=== PATIENT | male | born 1975 | race African-American/Black ===

== ENCOUNTER 2016-10-21 10:15 | Emergency (ER) | payer OTHER ==
[~2016-10-21] VITALS: Ht 167.6 cm; Wt 81.5 kg
[~2016-10-21 10:15] MED LIST: DEPA500T3 PO; IBUP800T23 PO; REME30TA PO
[2016-10-21 10:16] VITALS: BP 110/75; PULSE 70; RESP 20; TEMP 98; O2SAT 98
--- NOTE | 2016-10-21 10:37 | PD ---
HPI Chief Complaint: Injury Time Seen by Provider: 10:36 Travel History International Travel<30 days: No Contact w/Intl Traveler<30days: No Traveled to known affect area: No History of Present Illness HPI 40-year-old male presents emergency Department with complaint of left shoulder pain since Tuesday after hearing a "pop" while working out lifting weights. Denies paresthesias, loss of sensation to the affected extremity. Reports decreased range of motion at the left shoulder secondary to pain. Denies fever , chills, nausea, vomiting. Has taken [id number] medications with some relief of symptoms. Pain is worse with movement and palpation. No known allergies. Has no other medical complaints. No other modifying factors or associated signs and symptoms. PFSH Past Medical History Anxiety: Yes Depression: Yes Cardiovascular Problems: Yes (HEART MURMUR) Diminished Hearing: No Headaches: Yes Musculoskeletal: Yes (FX RIGHT ANKLE 03/03) Immunizations Current: Yes Past Surgical History Other Surgery: Yes (NASAL PASSAGE SURGERY 2012) Social History Alcohol Use: Yes (SOCIALLY) Tobacco Use: No Substance Use: Yes (MARIJUANA) Allergies-Medications (Allergen,Severity, Reaction): Coded Allergies: No Known Allergies (Verified , 10/21/16) Reported Meds & Prescriptions Reported Meds & Active Scripts Active Robaxin (Methocarbamol) 500 Mg Tab 500 Mg PO QID PRN Ibuprofen 800 Mg Tab 800 Mg PO Q6HR PRN Ibuprofen 800 Mg Tab 800 Mg PO Q8HR 10 Days Reported Remeron 30 mg (Mirtazapine) 30 Mg Tab 1 Tab PO HS Depakote ER 500 mg (Divalproex Sodium) 500 Mg Tab 2 Tab PO HS Review of Systems Except as stated in HPI: all other systems reviewed are Neg Physical Exam Narrative GENERAL: Well-nourished, well-developed male patient, in no acute distress SKIN: Warm and dry. HEAD: Atraumatic. Normocephalic. EYES: Pupils equal and round. No scleral icterus. No injection or drainage. ENT: Mucosa pink and moist. Airway patent. NECK: Supple. Trachea midline. CARDIOVASCULAR: Regular rate and rhythm. RESPIRATORY: No accessory muscle use. GASTROINTESTINAL: Flat. MUSCULOSKELETAL: Left shoulder with full range of motion and greater than 45 abduction; no obvious deformity; shoulder without erythema, edema, ecchymosis; with tenderness of the patient to the anterior aspect; joint stable. Shoulders equal. Left upper extremity supple and nontender to 2+ radial pulse and sensory intact without erythema or edema. No obvious deformities. No clubbing. No cyanosis. No edema. NEUROLOGICAL: Awake and alert. Oriented 3. No obvious cranial nerve deficits. Motor grossly within normal limits. Normal speech. PSYCHIATRIC: Appropriate mood and affect; insight and judgment normal. Data Data Last Documented VS Vital Signs Date Time Temp Pulse Resp B/P Pulse Ox O2 Delivery O2 Flow Rate FiO2 10/21/16 10:16 98.0 70 20 110/75 98 Room Air Orders Ibuprofen (Motrin) (10/21/16 10:45) Methocarbamol (Robaxin) (10/21/16 10:45) Sling Cradle Arm (10/21/16 ) MDM Medical Decision Making Medical Screen Exam Complete: Yes Emergency Medical Condition: Yes Medical Record Reviewed: Yes Differential Diagnosis Shoulder strain, rotator cuff tear, less likely fracture dislocation Narrative Course 40-year-old male with left shoulder injury consistent with a shoulder strain. No traumatic injury. Joint is stable and I do not suspect fracture, dislocation , joint separation and feel that imaging is not necessary at this time. Patient was provided with an arm sling for support and discussed limited use of arm sling. Ibuprofen and Robaxin ordered and administered in the ER. Ibuprofen Robaxin prescribed for home. Instructed patient to follow-up with primary care provider if symptoms persist greater than 10-14 days. Patient verbalizes understanding and agreement with treatment plan. Patient is medically cleared and stable for discharge. Discussed reasons to return to the emergency department. Instructed patient to follow up with primary care provider. Patient agrees with treatment plan. The patients vital signs are stable and the patient is stable for outpatient follow-up and treatment. Patient discharged home, stable and in no acute distress. Diagnosis Primary Impression: Left shoulder strain Qualified Code: S46.912A - Left shoulder strain, initial encounter Referrals: Orthopedist Primary Care Physician Patient Instructions: General Instructions, Shoulder Sprain (ED) Departure Forms: Tests/Procedures, Work Release Enter return to work date: October 25, 2016 Additional Instructions: Tylenol or ibuprofen as needed and as directed to reduce pain and inflammation Rest, ice, and compress extremity to decrease pain and inflammation Arm sling for support; limit use of arm sling to avoid frozen shoulder Avoid aggravating activity; increase activity as tolerated Follow-up with primary care provider Follow-up with orthopedics as needed Return to the emergency department immediately with worsening symptoms Med/Other Pt SpecificInfo: Prescription(s) given Scripts Methocarbamol (Robaxin)500 Mg [id number] Mg PO QID PRN (MUSCLE SPASM) #30 TAB Ref 0 Prov:Viky Ng 10/21/16 Ibuprofen 800 Mg [id number] Mg PO Q6HR PRN (PAIN) #30 TAB Ref 0 Prov:Viky Ng 10/21/16 Disposition: 01 DISCHARGE HOME Condition: Stable Viky Ng Oct 21, 2016 10:37
[2016-10-21] MEDS ORDERED: IBUP800T23 PO (10:39)
[2016-10-21] MEDS ORDERED: ROBA500T PO (10:39)
[2016-10-21] MEDS ORDERED: IBUPROFEN 800 MG TAB PO ONE (10:45)
[2016-10-21] MEDS ORDERED: METHOCARBAMOL 500 MG TAB PO ONE (10:45)
== END 2016-10-21 11:05 | disposition home or self-care (01) ==
LOC: NEPK 10:15
DX: S46.912A Strain of unspecified muscle, fascia and tendon at shoulder and upper arm level, left arm, initial encounter (principal); X50.9XXA Other and unspecified overexertion or strenuous movements or postures, initial encounter; Y93.B9 Activity, other involving muscle strengthening exercises
CPT/HCPCS: 99283

== ENCOUNTER 2017-08-17 11:38 | Emergency (ER) | payer SELFPAY ==
[~2017-08-17] VITALS: Ht 167.6 cm; Wt 72.7 kg
[~2017-08-17 11:38] MED LIST changes: +IBUP1TAB7 PO; +ROBA500T PO
[2017-08-17 11:39] VITALS: BP 134/69; PULSE 86; RESP 16; TEMP 98.6; O2SAT 99
--- NOTE | 2017-08-17 12:34 | RADRPT ---
EXAM DATE/TIME: 08/17/2017 12:26 [facility] COMPARISON: No previous studies available for comparison. INDICATIONS : Right frontal haedache right blurred vision. RADIATION DOSE: 38.21 CTDIvol (mGy) MEDICAL HISTORY : Cardiovascular disease. SURGICAL HISTORY : None. ENCOUNTER: Initial ACUITY: 2 days PAIN SCALE: 6/10 LOCATION: Right cranial TECHNIQUE: Multiple contiguous axial images were obtained of the head. Using automated exposure control and adj ustment of the mA and/or kV according to patient size, radiation dose was kept as low as reasonably a chievable to obtain optimal diagnostic quality images. DICOM format image data is available electro nically for review and comparison. FINDINGS: CEREBRUM: The ventricles are normal for age. No evidence of midline shift, mass lesion, hemorrhage or acute in farction. No extra-axial fluid collections are seen. POSTERIOR FOSSA: The cerebellum and brainstem are intact. The 4th ventricle is midline. The cerebellopontine angle i s unremarkable. EXTRACRANIAL: The visualized portion of the orbits is intact. There is opacification of the frontal sinuses, anteri or ethmoid air cells and both maxillary sinuses. There size wall thickening and calcifications within the opacified sinuses. SKULL: The calvaria is intact. No evidence of skull fracture. CONCLUSION: 1. No acute intracranial abnormalities. Chronic pansinusitis with mural thickening and calcifications within the opacified sinuses. Lenny Franks MD on August 17, 2017 at 12:29 Board Certified Radiologist. This report was verified electronically.
[2017-08-17] MEDS ORDERED: DEPA500T3 PO (12:41)
[2017-08-17] MEDS ORDERED: REME30TA PO (12:41)
[2017-08-17 12:48] LABS: AUTOMATED NEUTROPHIL # 2.3 TH/MM3 (1.8-7.7); BASOPHIL # 0.1 TH/MM3 (0-0.2); EOSINOPHIL # 0.6 TH/MM3 (0-0.4); EOSINOPHIL % 10.7 % (0.0-4.0); HEMOGLOBIN 14.5 GM/DL (13.0-17.0); LYMPH % 40.5 % (9.0-44.0); LYMPHOCYTE # 2.2 TH/MM3 (1.0-4.8); MEAN CELL VOLUME 90.2 FL (80.0-100.0); MEAN CORPUSCULAR HEMOGLOBIN 31.8 PG (27.0-34.0); MEAN CORPUSCULAR HGB CONC 35.3 % (32.0-36.0); MEAN PLATELET VOLUME 8.8 FL (7.0-11.0); MONO % 4.9 % (0.0-8.0); MONOCYTE # 0.3 TH/MM3 (0-0.9); NEUT % 42.9 % (16.0-70.0); PLATELET COUNT 194 TH/MM3 (150-450); RED BLOOD COUNT 4.55 MIL/MM3 (4.50-5.90); WHITE BLOOD COUNT 5.4 TH/MM3 (4.0-11.0)
[2017-08-17 13:02] LABS: ALBUMIN 3.6 GM/DL (3.4-5.0); ALT (GPT) 16 U/L (12-78); AST (GOT) 14 U/L (15-37); BICARBONATE 29.1 MEQ/L (21.0-32.0); BLOOD UREA NITROGEN 10 MG/DL (7-18); CALCIUM 8.9 MG/DL (8.5-10.1); CHLORIDE 106 MEQ/L (98-107); CREATININE 0.98 MG/DL (0.60-1.30); GLOMERULAR FILTRATION RATE 102 ML/MIN (>89); GLUCOSE,RANDOM 80 MG/DL (74-106); SODIUM (NA) 139 MEQ/L (136-145)
[2017-08-17 13:03] LABS: ALKALINE PHOSPHATASE 90 U/L (45-117); TOTAL BILIRUBIN ADULT 0.3 MG/DL (0.2-1.0); TOTAL PROTEIN 7.6 GM/DL (6.4-8.2)
--- NOTE | 2017-08-17 13:04 | PD ---
HPI Chief Complaint: Headache Time Seen by Provider: 12:37 Travel History International Travel<30 days: No Contact w/Intl Traveler<30days: No Traveled to known affect area: No History of Present Illness HPI Patient is a 41-year-old male with a history of schizophrenia presents emergency department for evaluation of dizziness and a headache. Patient states his Remeron was recently adjusted and he continues to take his Depakote as prescribed. States symptoms been going on for the past few weeks and gradually worsening. He is calm and cooperative and seems to be a very high functioning schizophrenic. He denies any head injury, mild nausea without vomiting, denies any focalized weakness or tremors. Patient states his headache is only mild. He has localized to behind his right eye, context and associated signs symptoms as above per [facility] Past Medical History Anxiety: Yes Depression: Yes Cardiovascular Problems: Yes (HEART MURMUR) Diminished Hearing: No Headaches: Yes Musculoskeletal: Yes (FX RIGHT ANKLE 03/03) Immunizations Current: Yes Tetanus Vaccination: Unknown Influenza Vaccination: No Past Surgical History Other Surgery: Yes (NASAL PASSAGE SURGERY 2012) Social History Alcohol Use: Yes (SOCIALLY) Tobacco Use: Yes Substance Use: Yes (MARIJUANA) Allergies-Medications (Allergen,Severity, Reaction): Coded Allergies: No Known Allergies (Verified Adverse Reaction, Unknown, 08/17/17) Reported Meds & Prescriptions Reported Meds & Active Scripts Active Meclizine (Meclizine HCl) 25 Mg Tab 25 Mg PO TID PRN Robaxin (Methocarbamol) 500 Mg Tab 500 Mg PO QID PRN Ibuprofen 800 Mg Tab 800 Mg PO Q6HR PRN Reported Remeron (Mirtazapine) 30 Mg Tab 30 Mg PO HS Depakote ER (Divalproex Sodium) 500 Mg Tiffany 500 Mg PO HS Review of Systems Except as stated in HPI: all other systems reviewed are Neg Physical Exam Narrative GENERAL: Well-developed well-nourished no obvious distress peer SKIN: Focused skin assessment warm/dry. HEAD: Atraumatic. Normocephalic. EYES: Pupils equal and round. No scleral icterus. No injection or drainage. ENT: No nasal bleeding or discharge. Mucous membranes pink and moist. Multiple gold teeth, TMs clear bilaterally. NECK: Trachea midline. No JVD. CARDIOVASCULAR: Regular rate and rhythm. No murmur appreciated. RESPIRATORY: No accessory muscle use. Clear to auscultation. Breath sounds equal bilaterally. GASTROINTESTINAL: Abdomen soft, non-tender, nondistended. Hepatic and splenic margins not palpable. MUSCULOSKELETAL: No obvious deformities. No clubbing. No cyanosis. No edema. NEUROLOGICAL: Awake and alert. Cranial nerves II through XII are grossly intact and nonfocal, 5 out of 5 strength in all 4 extremities per cerebellar testing negative, ambulates with an even narrow-base gait. PSYCHIATRIC: Appropriate mood and affect; insight and judgment normal. Data Data Last Documented VS Vital Signs Date Time Temp Pulse Resp B/P (MAP) Pulse Ox O2 Delivery O2 Flow Rate FiO2 08/17/17 14:36 62 16 106/67 (80) 98 08/17/17 12:42 Room Air 08/17/17 11:[address] Brain W/O Iv Contrast(Rout) (08/17/17 ) Complete Blood Count With Diff (08/17/17 11:46) Comprehensive Metabolic Panel (08/17/17 11:46) Ammonia (08/17/17 11:46) Valproic Acid (Depakene) (08/17/17 13:03) Acetaminophen (Tylenol) (08/17/17 13:15) Meclizine (Antivert) (08/17/17 13:15) Ed Discharge Order (08/17/17 14:18) Labs Laboratory Tests Test 08/17/17 12:25 White Blood Count 5.4 TH/MM3 Red Blood Count 4.55 MIL/MM3 Hemoglobin 14.5 GM/DL Hematocrit 41.0 % Mean Corpuscular Volume 90.2 FL Mean Corpuscular Hemoglobin 31.8 PG Mean Corpuscular Hemoglobin Concent 35.3 % Red Cell Distribution Width 14.0 % Platelet Count 194 TH/MM3 Mean Platelet Volume 8.8 FL Neutrophils (%) (Auto) 42.9 % Lymphocytes (%) (Auto) 40.5 % Monocytes (%) (Auto) 4.9 % Eosinophils (%) (Auto) 10.7 % Basophils (%) (Auto) 1.0 % Neutrophils # (Auto) 2.3 TH/MM3 Lymphocytes # (Auto) 2.2 TH/MM3 Monocytes # (Auto) 0.3 TH/MM3 Eosinophils # (Auto) 0.6 TH/MM3 Basophils # (Auto) 0.1 TH/MM3 CBC Comment DIFF FINAL Differential Comment Blood Urea Nitrogen 10 MG/DL Creatinine 0.98 MG/DL Random Glucose 80 MG/DL Total Protein 7.6 GM/DL Albumin 3.6 GM/DL Calcium Level 8.9 MG/DL Alkaline Phosphatase 90 U/L Aspartate Amino Transf (AST/SGOT) 14 U/L Alanine Aminotransferase (ALT/SGPT) 16 U/L Total Bilirubin 0.3 MG/DL Sodium Level 139 MEQ/L Potassium Level 4.2 MEQ/L Chloride Level 106 MEQ/L Carbon Dioxide Level 29.1 MEQ/L Anion Gap 4 MEQ/L Estimat Glomerular Filtration Rate 102 ML/MIN Ammonia 21 MCMOL/L Valproic Acid (Depakene) Level 15 MCG/ML [facility] Medical Decision Making Medical Screen Exam Complete: Yes Emergency Medical Condition: Yes Differential Diagnosis Vertigo, medication reaction, medication toxicity unlikely. Narrative Course Patient room to the emergency department, CT head, basic labs reassuring, Depakote level is actually subtherapeutic. He was given meclizine and this completely relieved his symptoms. He would like to go home. Discussed follow- up with susan anders whom prescribes in the medication. Discussed return to ED criteria. Diagnosis Primary Impression: Headache Additional Impression: Vertigo Departure Forms: Tests/Procedures, Work Release Enter return to work date: Aug 17, 2017 Med/Other Pt SpecificInfo: Prescription(s) given Scripts Meclizine (Meclizine) 25 Mg Tab 25 MG PO TID Y for VERTIGO, #25 TAB 0 Refills Prov: Jeff Ribeiro MD 08/17/17 Disposition: 01 DISCHARGE HOME Condition: Stable Jeff Ribeiro MD Aug 17, 2017 13:03
[2017-08-17] MEDS ORDERED: ACETAMINOPHEN 325 MG TAB PO ONE (13:15)
[2017-08-17] MEDS ORDERED: MECLIZINE HCL 25 MG TAB PO ONE (13:15)
[2017-08-17] MEDS ORDERED: MECL-62 PO (14:26)
[2017-08-17 14:36] VITALS: BP 106/67
== END 2017-08-17 14:45 | disposition home or self-care (01) ==
LOC: NEPD 11:38
DX: R51 Headache (principal); R42 Dizziness and giddiness; F20.9 Schizophrenia, unspecified; Z72.0 Tobacco use
CPT/HCPCS: 70450; 80053; 80164; 82140; 85025

== ENCOUNTER 2017-10-25 09:24 | Emergency (ER) | payer SELFPAY ==
[~2017-10-25] VITALS: Ht 167.6 cm; Wt 75.0 kg
[~2017-10-25 09:24] MED LIST changes: -IBUP800T23 PO; +MECL-62 PO
[2017-10-25 09:30] VITALS: BP 117/85; PULSE 99; RESP 15; TEMP 98.7; O2SAT 97
[2017-10-25] MEDS ORDERED: CALL40PA TOPICAL (11:04)
--- NOTE | 2017-10-25 11:05 | PD ---
HPI Chief Complaint: Pain: Acute or Chronic Time Seen by Provider: 10:35 Travel History International Travel<30 days: No Contact w/Intl Traveler<30days: No Traveled to known affect area: No History of Present Illness HPI 41-year-old man with pain in his left foot and 2 specific areas ongoing for months, worse recently. History Past Medical History Medical History: Denies Significant Hx Social History Alcohol Use: Yes (SOCIALLY) Tobacco Use: No Allergies-Medications (Allergen,Severity, Reaction): Coded Allergies: No Known Allergies (Verified Adverse Reaction, Unknown, 10/25/17) Reported Meds & Prescriptions Reported Meds & Active Scripts Active Callus Removers Topical (Salicylic Acid) 40 % Pad 1 Pad TOPICAL Q48H Meclizine (Meclizine HCl) 25 Mg Tab 25 Mg PO TID PRN Robaxin (Methocarbamol) 500 Mg Tab 500 Mg PO QID PRN Ibuprofen 800 Mg Tab 800 Mg PO Q6HR PRN Reported Remeron (Mirtazapine) 30 Mg Tab 30 Mg PO HS Depakote ER (Divalproex Sodium) 500 Mg Tiffany 500 Mg PO HS Review of Systems Except as stated in HPI: all other systems reviewed are Neg Physical Exam Narrative GENERAL: 41-year-old man, well-appearing, no acute distress. SKIN: Warm and dry. CARDIOVASCULAR: Warm and well perfused. RESPIRATORY: Normal rate and effort. MUSCULOSKELETAL: 2 plantar warts in the area of tenderness on the left foot. NEUROLOGICAL: Awake and alert. No gross deficits. Data Data Last Documented VS Vital Signs Date Time Temp Pulse Resp B/P (MAP) Pulse Ox O2 Delivery O2 Flow Rate FiO2 10/25/17 09:30 98.7 99 15 117/85 (96) 97 Orders Orders Ed Discharge Order (10/25/17 11:05) MDM Medical Decision Making Medical Screen Exam Complete: Yes Emergency Medical Condition: Yes Differential Diagnosis Plantar warts, foreign body, infection, other Narrative Course 41-year-old man with appears to be plantar warts on his left foot. Recommended topical treatment. Diagnosis Primary Impression: Plantar warts Additional Instructions: Use topical salicylic acid or [id number] Dr. Jay's freeze spray to warts as directed. Return to the emergency department for any new or worsening symptoms. Med/Other Pt SpecificInfo: Prescription(s) given Scripts Salicylic Acid Topical (Callus Removers Topical) 40 % Pad 1 PAD TOPICAL Q48H for [place]/Callous, #1 CONTAINER 0 Refills Prov: Mathew Robert MD 10/25/17 Disposition: 01 DISCHARGE HOME Condition: Stable Mathew Robert MD October 25, 2017 11:05
== END 2017-10-25 11:46 | disposition home or self-care (01) ==
LOC: NEPE 09:24
DX: B07.0 Plantar wart (principal)
CPT/HCPCS: 99282